=== PATIENT | female | born 1960 | race Caucasian/White ===

== ENCOUNTER → 2019-04-23 | Outpatient (CLI) | payer OTHER | END | disposition home or self-care (01) | LOC: RAH 15:18 | PROVIDERS: ATTEND Internal Medicine | DX: Z12.31 Encounter for screening mammogram for malignant neoplasm of breast (principal) | CPT/HCPCS: 77067 ==

== ENCOUNTER 2019-05-05 17:11 | Emergency (ER) | payer OTHER ==
[2019-05-07 08:11] LABS: HEPATITIS Bs ANTIGEN SCREEN P Negative (Negative)
== END 2019-05-05 19:13 | disposition home or self-care (01) ==
LOC: EDH 17:11
DX: S01.532A Puncture wound without foreign body of oral cavity, initial encounter (principal); Z90.49 Acquired absence of other specified parts of digestive tract; Z88.5 Allergy status to narcotic agent; Z88.8 Allergy status to other drugs, medicaments and biological substances; W46.0XXA Contact with hypodermic needle, initial encounter; Y93.89 Activity, other specified; Y92.89 Other specified places as the place of occurrence of the external cause; Y99.8 Other external cause status
CPT/HCPCS: 36415; 86701; 86704; 87340; 87390; 87520

== ENCOUNTER → 2020-05-18 | Outpatient (CLI) | payer OTHER ==
[2020-05-18 15:47] LABS: BASOPHILS % (AUTO) 1.7 % (0.0-5.0); EOSINOPHILS % (AUTO) 5.1 % (0.0-8.0); LYMPHOCYTES % (AUTO) 31.6 % (21.0-51.0); MEAN CORPUSCULAR HEMOGLOBIN 29.2 pg (27.0-33.0); MEAN CORPUSCULAR HGB CONC 32.5 g/dL (32.0-36.0); MEAN CORPUSCULAR VOLUME 89.9 fL (79-99); MONOCYTES % (AUTO) 6.7 % (3.0-13.0); NEUTROPHILS % (AUTO) 54.7 % (40.0-77.0); PLATELET COUNT (AUTO) 302 K/uL (130-400); RED BLOOD CELL COUNT(AUTO) 4.45 MIL/uL (4.00-5.50); RED CELL DISTRIBUTION WIDTH 12.7 % (11.0-15.5); WHITE BLOOD COUNT (AUTO) 6.3 K/uL (4.8-10.8)
[2020-05-18 16:10] LABS: ALBUMIN 4.1 g/dL (3.5-5.0); BILIRUBIN,TOTAL 0.6 mg/dL (0.2-1.0); CREATININE 0.8 mg/dL (0.5-1.5); POTASSIUM 4.4 mmol/L (3.5-5.1); THYROID STIMULATING HORMONE 1.41 uIU/mL (0.36-3.74); TOTAL PROTEIN, SERUM 7.4 g/dL (6.0-8.3)
== END | disposition home or self-care (01) ==
LOC: LAB 15:26
PROVIDERS: ATTEND Internal Medicine
DX: Z00.00 Encounter for general adult medical examination without abnormal findings (principal)
CPT/HCPCS: 36415; 80053; 80061; 84443; 85025

== ENCOUNTER → 2020-06-10 | Outpatient (CLI) | payer OTHER | END | disposition home or self-care (01) | LOC: RAH 09:04 | PROVIDERS: ATTEND Internal Medicine | DX: R10.11 Right upper quadrant pain (principal) | CPT/HCPCS: 76705 ==

== ENCOUNTER → 2020-08-30 | Outpatient (CLI) | payer OTHER ==
[2020-08-30 10:46] LABS: APPEARANCE,URINE Clear (CLEAR); BILIRUBIN,URINE Negative (NEGATIVE); COLOR,URINE Yellow (YELLOW); GLUCOSE, URINE (UA) Negative (NEGATIVE); KETONES,URINE Negative (NEGATIVE); LEUKOCYTE ESTERASE ,URINE Negative (NEGATIVE); NITRATE,URINE Negative (NEGATIVE); OCCULT BLOOD,URINE Negative (NEGATIVE); PROTEIN,URINE Negative (NEGATIVE); UROBILINOGEN,URINE 0.2 mg/dL (0.2-1.0)
== END | disposition home or self-care (01) ==
LOC: LAB 10:28
PROVIDERS: ATTEND Internal Medicine
DX: R30.0 Dysuria (principal); R35.0 Frequency of micturition
CPT/HCPCS: 81003; 87077; 87088; 87186

== ENCOUNTER → 2020-11-30 | Outpatient (CLI) | payer OTHER | END | disposition home or self-care (01) | LOC: RAH 10:58 | PROVIDERS: ATTEND Internal Medicine | DX: M25.571 Pain in right ankle and joints of right foot (principal); M19.071 Primary osteoarthritis, right ankle and foot; M77.31 Calcaneal spur, right foot; M85.871 Other specified disorders of bone density and structure, right ankle and foot | CPT/HCPCS: 73600; 73630; 73650 ==

== ENCOUNTER 2021-01-06 03:13 | Emergency (ER) | payer OTHER ==
[~2021-01-06] VITALS: Ht 162.6 cm; Wt 64.4 kg
[2021-01-06 03:22] VITALS: BP 149/90
[2021-01-06] MEDS ORDERED: ORPHENADRINE CITRATE 30 MG/ML ML IM ONE (05:00)
[2021-01-06] MEDS ORDERED: KETOROLAC 60 MG VIAL (30MG/ML) IM ONE (05:00)
[2021-01-06] MEDS ORDERED: ORPH-43 PO (07:23)
[2021-01-06] MEDS ORDERED: MELO7.5T12 PO (07:23)
[2021-01-06] MEDS ORDERED: LIDOP TP (07:23)
[2021-01-06 07:39] VITALS: BP 129/87
== END 2021-01-06 07:54 | disposition home or self-care (01) ==
LOC: EDH 03:13
DX: M62.830 Muscle spasm of back (principal); R20.2 Paresthesia of skin; Z88.5 Allergy status to narcotic agent; Z88.1 Allergy status to other antibiotic agents; Z79.1 Long term (current) use of non-steroidal anti-inflammatories (NSAID); Z98.890 Other specified postprocedural states
CPT/HCPCS: 72125; 72128; 72131; 96372 ×2; 99285; J1885; J2360

== ENCOUNTER → 2021-05-09 | Outpatient (CLI) | payer OTHER ==
[~2021-05-09] MED LIST: LIDOP TP; MELO7.5T12 PO; ORPH-43 PO
[2021-05-09 12:17] LABS: BASOPHILS % (AUTO) 1.2 % (0.0-5.0); EOSINOPHILS % (AUTO) 4.5 % (0.0-8.0); HEMATOCRIT 40.3 % (36-48); LYMPHOCYTES % (AUTO) 29.3 % (21.0-51.0); MEAN CORPUSCULAR HEMOGLOBIN 28.9 pg (27.0-33.0); MEAN CORPUSCULAR HGB CONC 32.3 g/dL (32.0-36.0); MEAN CORPUSCULAR VOLUME 89.6 fL (79-99); MONOCYTES % (AUTO) 7.2 % (3.0-13.0); NEUTROPHILS % (AUTO) 57.6 % (40.0-77.0); PLATELET COUNT (AUTO) 284 K/uL (130-400); RED CELL DISTRIBUTION WIDTH 12.3 % (11.0-15.5)
[2021-05-09 12:48] LABS: BILIRUBIN,TOTAL 0.2 mg/dL (0.2-1.0); CREATININE 0.9 mg/dL (0.5-1.5); POTASSIUM 4.5 mmol/L (3.5-5.1); THYROID STIMULATING HORMONE 1.33 uIU/mL (0.36-3.74); TOTAL PROTEIN, SERUM 7.5 g/dL (6.0-8.3)
== END | disposition home or self-care (01) ==
LOC: LAB 11:16
PROVIDERS: ATTEND Internal Medicine
DX: Z00.00 Encounter for general adult medical examination without abnormal findings (principal); D50.9 Iron deficiency anemia, unspecified; E78.6 Lipoprotein deficiency; E03.9 Hypothyroidism, unspecified
CPT/HCPCS: 36415; 80053; 80061; 84443; 85025

== ENCOUNTER → 2021-05-11 | Outpatient (CLI) | payer OTHER | END | disposition home or self-care (01) | LOC: LAB 08:37 | PROVIDERS: ATTEND Internal Medicine | DX: Z01.419 Encounter for gynecological examination (general) (routine) without abnormal findings (principal) | CPT/HCPCS: 36415; 88175 ==

== ENCOUNTER 2022-04-01 20:10 | Emergency (ER) | payer OTHER ==
[~2022-04-01] VITALS: Ht 160 cm; Wt 66.2 kg
[2022-04-01 20:11] VITALS: BP 117/86
[2022-04-01 20:39] LABS: APPEARANCE,URINE TURBID (CLEAR); BILIRUBIN,URINE NEGATIVE (NEGATIVE); COLOR,URINE YELLOW (YELLOW); GLUCOSE, URINE (UA) NEGATIVE (NEGATIVE); KETONES,URINE NEGATIVE (NEGATIVE); LEUKOCYTE ESTERASE ,URINE LARGE Leu/uL (NEGATIVE); NITRATE,URINE POSITIVE (NEGATIVE); OCCULT BLOOD,URINE MODERATE (NEGATIVE); PROTEIN,URINE 100 mg/dL (NEGATIVE); UROBILINOGEN,URINE 0.2 mg/dL (0.2-1.0)
[2022-04-01 20:48] LABS: WBC,URINE 51-100 /HPF (0-1)
[2022-04-01 20:49] LABS: BACTERIA,URINE Few /HPF (None Seen); SQUAMOUS EPITHELIAL CELL,UR Rare /HPF (0-2)
[2022-04-01] MEDS ORDERED: PHEN-847 PO (20:49)
[2022-04-01] MEDS ORDERED: CEPH500B PO (20:49)
[2022-04-01] MEDS ORDERED: CEFTRIAXONE 1G VIAL ONE (20:54)
[2022-04-01] MEDS ORDERED: PHENAZOPYRIDINE HCL 200 MG TABLET ONE (20:54)
[2022-04-01] MEDS ORDERED: PHENAZOPYRIDINE HCL 200 MG TABLET PO ONE (21:00)
[2022-04-01] MEDS ORDERED: CEFTRIAXONE 1G VIAL IM ONE (21:00)
== END 2022-04-01 21:19 | disposition home or self-care (01) ==
LOC: EDH 20:10
DX: N39.0 Urinary tract infection, site not specified (principal); Z88.1 Allergy status to other antibiotic agents; Z88.5 Allergy status to narcotic agent; Z79.1 Long term (current) use of non-steroidal anti-inflammatories (NSAID)
CPT/HCPCS: 99283; 87077; 87088; 87186; 81001; 96372; J0696

== ENCOUNTER → 2022-06-20 | Outpatient (CLI) | payer OTHER ==
[~2022-06-20] MED LIST changes: +CEPH500B PO; +PHEN-847 PO
[2022-06-20 12:31] LABS: BASOPHILS % (AUTO) 1.2 % (0.0-5.0); EOSINOPHILS % (AUTO) 4.8 % (0.0-8.0); HEMATOCRIT 40.1 % (36-48); LYMPHOCYTES % (AUTO) 32.2 % (21.0-51.0); MEAN CORPUSCULAR HEMOGLOBIN 29.3 pg (27.0-33.0); MEAN CORPUSCULAR HGB CONC 32.7 g/dL (32.0-36.0); MEAN CORPUSCULAR VOLUME 89.7 fL (79-99); MONOCYTES % (AUTO) 9.2 % (3.0-13.0); NEUTROPHILS % (AUTO) 52.4 % (40.0-77.0); PLATELET COUNT (AUTO) 282 K/uL (130-400); RED BLOOD CELL COUNT(AUTO) 4.47 MIL/uL (4.00-5.50); RED CELL DISTRIBUTION WIDTH 12.5 % (11.0-15.5)
[2022-06-20 12:56] LABS: ALBUMIN 4.1 g/dL (3.5-5.0); CREATININE 0.8 mg/dL (0.5-1.5); POTASSIUM 4.3 mmol/L (3.5-5.1); THYROID STIMULATING HORMONE 0.8 uIU/mL (0.36-3.74); TOTAL PROTEIN, SERUM 7.7 g/dL (6.0-8.3)
== END | disposition home or self-care (01) ==
LOC: LAB 11:59
PROVIDERS: ATTEND Internal Medicine
DX: E78.2 Mixed hyperlipidemia (principal)
CPT/HCPCS: 36415; 80053; 80061; 84443; 85025

== ENCOUNTER → 2023-02-09 | Outpatient (CLI) | payer OTHER ==
[~2023-02-09] MED LIST changes: -ORPH-43 PO; +ORPH100T4 PO
== END | disposition home or self-care (01) ==
LOC: RAH 11:13
PROVIDERS: ATTEND Internal Medicine
DX: M16.11 Unilateral primary osteoarthritis, right hip (principal)
CPT/HCPCS: 73502

== ENCOUNTER → 2023-09-29 | Outpatient (CLI) | payer OTHER ==
[2023-09-29 08:42] LABS: BASOPHILS # (AUTO) 0.08 K/uL (0.00-0.20); BASOPHILS % (AUTO) 1.3 % (0.0-5.0); EOSINOPHILS # (AUTO) 0.63 K/uL (0.00-0.70); EOSINOPHILS % (AUTO) 10.2 % (0.0-8.0); HEMATOCRIT 41.6 % (36-48); IMMATURE GRANULOCYTE ABSOLUTE 0.02 K/uL (0-1); LYMPHOCYTES % (AUTO) 31.6 % (21.0-51.0); MEAN CORPUSCULAR HGB CONC 32.9 g/dL (32.0-36.0); MONOCYTES # (AUTO) 0.5 K/uL (0.1-1.0); MONOCYTES % (AUTO) 8.4 % (3.0-13.0); NEUTROPHILS % (AUTO) 48.2 % (40.0-77.0); PLATELET COUNT (AUTO) 318 K/uL (130-400); RED BLOOD CELL COUNT(AUTO) 4.57 MIL/uL (4.00-5.50); RED CELL DISTRIBUTION WIDTH 12.5 % (11.0-15.5); WHITE BLOOD COUNT (AUTO) 6.2 K/uL (4.8-10.8)
[2023-09-29 08:59] LABS: ALBUMIN 3.7 g/dL (3.5-5.0); BILIRUBIN,TOTAL 0.3 mg/dL (0.2-1.0); CREATININE 0.8 mg/dL (0.5-1.0); POTASSIUM 4.5 mmol/L (3.5-5.1); TOTAL PROTEIN, SERUM 7.3 g/dL (6.0-8.3)
[2023-09-29 09:05] LABS: HEMOGLOBIN A1C 5.6 % (4.0-6.0)
== END | disposition home or self-care (01) ==
LOC: LAB 08:12
PROVIDERS: ATTEND Internal Medicine
DX: Z13.1 Encounter for screening for diabetes mellitus (principal); E03.9 Hypothyroidism, unspecified; D50.9 Iron deficiency anemia, unspecified; E78.2 Mixed hyperlipidemia
CPT/HCPCS: 36415; 80053; 80061; 83036; 84443; 85025

== ENCOUNTER 2023-11-24 17:07 | Emergency (ER) | payer OTHER ==
[~2023-11-24] VITALS: Ht 160 cm; Wt 68.0 kg
[2023-11-24 18:35] VITALS: BP 135/71; PULSE 84; RESP 17; O2SAT 99
== END 2023-11-24 18:36 | disposition home or self-care (01) ==
LOC: EDH 17:07
DX: S00.93XA Contusion of unspecified part of head, initial encounter (principal); W22.8XXA Striking against or struck by other objects, initial encounter; Y93.89 Activity, other specified; Y92.89 Other specified places as the place of occurrence of the external cause; Y99.8 Other external cause status
CPT/HCPCS: 70450

== ENCOUNTER → 2024-03-11 | Outpatient (CLI) | payer OTHER | END | disposition home or self-care (01) | LOC: LAB 16:18 | PROVIDERS: ATTEND Internal Medicine | DX: N64.52 Nipple discharge (principal) | CPT/HCPCS: 87070; 87076; 87086; 87186 ==

== ENCOUNTER → 2024-03-12 | Outpatient (CLI) | payer OTHER | END | disposition home or self-care (01) | LOC: RAH 15:37 | PROVIDERS: ATTEND Internal Medicine | DX: Z12.31 Encounter for screening mammogram for malignant neoplasm of breast (principal); R92.333 Mammographic heterogeneous density, bilateral breasts | CPT/HCPCS: 77067 ==

== ENCOUNTER → 2024-03-31 | Outpatient (CLI) | payer OTHER ==
[2024-03-31 12:50] LABS: BASOPHILS # (AUTO) 0.09 K/uL (0.00-0.20); BASOPHILS % (AUTO) 1.2 % (0.0-5.0); EOSINOPHILS # (AUTO) 0.47 K/uL (0.00-0.70); EOSINOPHILS % (AUTO) 6.5 % (0.0-8.0); HEMATOCRIT 37.7 % (36-48); IMMATURE GRANULOCYTE ABSOLUTE 0.02 K/uL (0-1); LYMPHOCYTES # (AUTO) 2.4 K/uL (1.0-4.8); MEAN CORPUSCULAR HEMOGLOBIN 30.1 pg (27.0-33.0); MEAN CORPUSCULAR HGB CONC 32.6 g/dL (32.0-36.0); MEAN CORPUSCULAR VOLUME 92.4 fL (79-99); MONOCYTES # (AUTO) 0.6 K/uL (0.1-1.0); MONOCYTES % (AUTO) 7.7 % (3.0-13.0); NEUTROPHILS # (AUTO) 3.7 K/uL (1.8-7.7); NEUTROPHILS % (AUTO) 51.3 % (40.0-77.0); PLATELET COUNT (AUTO) 292 K/uL (130-400); RED BLOOD CELL COUNT(AUTO) 4.08 MIL/uL (4.00-5.50); RED CELL DISTRIBUTION WIDTH 13.5 % (11.0-15.5); WHITE BLOOD COUNT (AUTO) 7.3 K/uL (4.8-10.8)
[2024-03-31 13:21] LABS: ALBUMIN 3.9 g/dL (3.5-5.0); BILIRUBIN,TOTAL 0.4 mg/dL (0.2-1.0); POTASSIUM 4.2 mmol/L (3.5-5.1); THYROID STIMULATING HORMONE 3.72 uIU/mL (0.36-3.74); TOTAL PROTEIN, SERUM 7.4 g/dL (6.0-8.3)
== END | disposition home or self-care (01) ==
LOC: LAB 12:10
PROVIDERS: ATTEND Internal Medicine
DX: N64.52 Nipple discharge (principal); D50.9 Iron deficiency anemia, unspecified; E78.2 Mixed hyperlipidemia; E03.9 Hypothyroidism, unspecified
CPT/HCPCS: 36415; 80053; 80061; 84146; 84443; 85025

== ENCOUNTER 2024-07-12 20:29 | Emergency (ER) | payer OTHER ==
[~2024-07-12] VITALS: Ht 160 cm; Wt 68.5 kg
--- NOTE | 2024-07-12 20:36 | NUR ---
UA CUP PROVIDED
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
[2024-07-12] MEDS: acetaMINOPHEN 500 MG TABLET PO ONE (22:02)
[2024-07-12 22:22] VITALS: BP 131/72; PULSE 72; RESP 18; TEMP 98; O2SAT 98
--- NOTE | 2024-07-12 22:28 | HMCIMG ---
CT CHEST/ABD/PELV W/O CONTRAST HISTORY: Back pain COMPARISON: 01/06/2021 TECHNIQUE: Multiple sequential axial images of the chest were obtained from the thoracic inlet through upper abdomen. Patient was not given contrast through intravenous route. FINDINGS: There is no evidence of pulmonary nodule or parenchymal disease. No pleural effusion or pericardial effusion is seen. There is no evidence of pneumothorax. There are normal size mediastinal and hilar lymph nodes. The heart is not enlarged. Degenerative changes of the thoracolumbar spine are present. There is no evidence of adrenal nodule. IMPRESSION: 1. No evidence of pulmonary nodule or effusion is seen. CT CHEST/ABD/PELV W/O CONTRAST HISTORY: No additional history given. COMPARISON: None TECHNIQUE: Multiple sequential axial images of the abdomen and pelvis were obtained from the dome of the diaphragm through symphysis pubis. Patient was not given contrast through intravenous route. Oral contrast was not given. FINDINGS: Liver measures 16 cm. The liver, spleen, adrenal glands and pancreas are unremarkable. There is no evidence of hydronephrosis bilaterally. No evidence of renal stone is seen. Fecal material is seen in the colon. There are normal size retroperitoneal and mesenteric lymph nodes. No ascites is seen. Appendix is not well seen limiting evaluation. Pelvic sidewalls are symmetric bilaterally. Bladder is poorly distended. IMPRESSION: 1. Fecal material is seen in the colon. Appendix is not seen limiting evaluation. CT was performed with one or more following dose reduction techniques: automated exposure control, adjustment of the mA and kv according to patient's size, or use of a iterative reconstruction technique.
--- NOTE | 2024-07-13 09:22 | EKG ---
[facility] Test Date: 2024-07-12 Test Time: 21:17:08 Pat Name: LAURI CATALAN Department: ED Room: Gender: F Partner Management Consultant: [id number] : 1960 Requested By: SO SOMERS Order Number: [id number] Reading MD: Romario Goldman Measurements Intervals Ross Rate: 70 P: -2 FL: 135 QRS: 30 QRSD: 87 T: 13 QT: 352 QTc: 380 Interpretive Statements Sinus rhythm No previous ECG available for comparison Electronically Signed On 07-14-2024 18:18:13 RANCH MANAGER by Romario Goldman Please click the below link to view image of tracing.
== END 2024-07-12 22:47 | disposition home or self-care (01) ==
LOC: EDH 20:29
DX: S20.229A Contusion of unspecified back wall of thorax, initial encounter (principal); M54.50 Low back pain, unspecified; Z79.1 Long term (current) use of non-steroidal anti-inflammatories (NSAID); Z88.1 Allergy status to other antibiotic agents; Z88.5 Allergy status to narcotic agent; Z90.49 Acquired absence of other specified parts of digestive tract; X58.XXXA Exposure to other specified factors, initial encounter; Y93.89 Activity, other specified; Y92.89 Other specified places as the place of occurrence of the external cause; Y99.0 Civilian activity done for income or pay
CPT/HCPCS: 71250; 74176; 93005; 99284

== ENCOUNTER → 2024-08-21 | Outpatient (CLI) | payer OTHER ==
[2024-08-21 14:41] LABS: APPEARANCE,URINE CLEAR (CLEAR); BILIRUBIN,URINE NEGATIVE (NEGATIVE); COLOR,URINE COLORLESS (YELLOW); GLUCOSE, URINE (UA) NEGATIVE (NEGATIVE); KETONES,URINE NEGATIVE (NEGATIVE); LEUKOCYTE ESTERASE ,URINE 75 Leu/uL (NEGATIVE); NITRATE,URINE NEGATIVE (NEGATIVE); OCCULT BLOOD,URINE NEGATIVE (NEGATIVE); PH,URINE 6.5 (5.0-8.0); PROTEIN,URINE NEGATIVE (NEGATIVE); UROBILINOGEN,URINE 0.2 mg/dL (0.2-1.0)
[2024-08-21 14:44] LABS: ADD UA MICROSCOPIC YES
[2024-08-21 14:48] LABS: RBC,URINE 0-1 /HPF (0-1)
== END | disposition home or self-care (01) ==
LOC: LAB 14:07
PROVIDERS: ATTEND Internal Medicine
DX: R30.0 Dysuria (principal)
CPT/HCPCS: 81001; 87086

== ENCOUNTER → 2024-11-17 | Outpatient (CLI) | payer OTHER ==
[2024-11-17 08:51] LABS: BASOPHILS # (AUTO) 0.09 K/uL (0.00-0.20); BASOPHILS % (AUTO) 1.9 % (0.0-5.0); EOSINOPHILS # (AUTO) 0.57 K/uL (0.00-0.70); EOSINOPHILS % (AUTO) 11.9 % (0.0-8.0); HEMATOCRIT 41.2 % (36-48); IMMATURE GRANULOCYTE ABSOLUTE 0.01 K/uL (0-1); LYMPHOCYTES # (AUTO) 1.7 K/uL (1.0-4.8); LYMPHOCYTES % (AUTO) 35.9 % (21.0-51.0); MEAN CORPUSCULAR HEMOGLOBIN 29.2 pg (27.0-33.0); MEAN CORPUSCULAR HGB CONC 32.5 g/dL (32.0-36.0); MEAN CORPUSCULAR VOLUME 89.8 fL (79-99); MONOCYTES # (AUTO) 0.4 K/uL (0.1-1.0); MONOCYTES % (AUTO) 9.2 % (3.0-13.0); NEUTROPHILS % (AUTO) 40.9 % (40.0-77.0); PLATELET COUNT (AUTO) 234 K/uL (130-400); RED BLOOD CELL COUNT(AUTO) 4.59 MIL/uL (4.00-5.50); RED CELL DISTRIBUTION WIDTH 13.2 % (11.0-15.5); WHITE BLOOD COUNT (AUTO) 4.8 K/uL (4.8-10.8)
[2024-11-17 09:11] LABS: HEMOGLOBIN A1C 5.8 % (4.0-6.0)
[2024-11-17 09:13] LABS: ALBUMIN 3.8 g/dL (3.5-5.0); BILIRUBIN,TOTAL 0.5 mg/dL (0.2-1.0); CREATININE 0.8 mg/dL (0.5-1.0); POTASSIUM 3.9 mmol/L (3.5-5.1); THYROID STIMULATING HORMONE 4.09 uIU/mL (0.36-3.74); TOTAL PROTEIN, SERUM 7.4 g/dL (6.0-8.3)
== END | disposition home or self-care (01) ==
LOC: LAB 08:10
PROVIDERS: ATTEND Internal Medicine
DX: E78.2 Mixed hyperlipidemia (principal); E03.9 Hypothyroidism, unspecified; D50.9 Iron deficiency anemia, unspecified; N64.52 Nipple discharge; R73.9 Hyperglycemia, unspecified; Z13.1 Encounter for screening for diabetes mellitus
CPT/HCPCS: 36415; 80053; 80061; 82043; 82570; 83036; 84146; 84443; 85025